=== PATIENT | female | born 1945 | race Caucasian/White ===

== ENCOUNTER 2025-07-15 12:45 | Outpatient (CLI) | payer MEDICARE, OTHER | END 2025-07-15 12:46 | disposition home or self-care (01) | LOC: CSHMAMMO 12:45 | PROVIDERS: ATTEND Internal Medicine Hematology & Oncology | DX: Z12.31 Encounter for screening mammogram for malignant neoplasm of breast (principal); M81.8 Other osteoporosis without current pathological fracture; Z80.3 Family history of malignant neoplasm of breast | CPT/HCPCS: 77063; 77067 ==